=== PATIENT | male | born 1955 | race African-American/Black ===

== ENCOUNTER 2017-09-16 08:18 | Outpatient (CLI) | payer OTHER ==
--- NOTE | 2017-09-16 10:08 | RAD ---
THREE VIEWS LUMBAR SPINE: HISTORY: Low back pain with pain radiating down both legs into the feet. COMPARISON: None. FINDINGS: Standing neutral, standing flexion, and standing extension views of the lumbar spine demonstrate 5 jo mbar-type vertebral bodies. Vertebral body height is maintained. No fracture. Mild loss of disk sp walter height at L4-L5. No spondylolisthesis in the neutral position. No abnormal motion upon extensio n or flexion. IMPRESSION: Mild degenerative change at L4-L5. POS: [facility]
--- NOTE | 2017-09-16 11:53 | MRI ---
MRI LUMBAR SPINE WITHOUT CONTRAST: Multiplanar, multisequential imaging of the lumbar spine obtained. INDICATION: Lumbar spondylosis. Low back pain. Radiation to both legs and feet. FINDINGS: Lumbar vertebrae maintain normal height and alignment. Degenerative disk signal changes are noted at L4-5 and L5-S1, although disk space height is preserved. No disk bulge or disk protrusion seen at L1-2, L2-3, or L3-4 levels. Mild facet arthrosis at these l evels; however, no central canal or foraminal stenosis. At L4-5, mild broad-based disk bulge flattens the anterior thecal sac. Facet arthrosis and hypertrop hy are slightly more prominent. Mild central canal stenosis at this level. Mild bilateral foraminal narrowing due to diffuse disk bulge and facet hypertrophy. At L5-S1, there is a central disk protrusion which flattens the thecal sac. Mild facet arthrosis. M oderate central canal stenosis. Bilateral foraminal stenosis, more prominent on the right due to dif fuse disk bulge extending into the foramina and projecting laterally to the right. IMPRESSION: 1. At L5-S1, there is a central disk protrusion compressing the thecal sac. Broad-based disk bulge extends into foramina bilaterally with foraminal stenosis being more prominent on the right. 2. At L4-5, mild diffuse disk bulge with mild central canal stenosis as described. 3. Incidentally noted on review of soft tissues is a 2 cm high T2 lesion medial to the left kidney. This does not exhibit simple cystic signal on T1. Recommend further evaluation with CT abdomen with attention to kidneys. CODE T POS: [facility]
== END 2017-09-16 08:19 | disposition home or self-care (01) ==
LOC: TBSIIMAG 08:18
PROVIDERS: ATTEND Neurological Surgery
DX: M47.816 Spondylosis without myelopathy or radiculopathy, lumbar region (principal); M51.27 Other intervertebral disc displacement, lumbosacral region; M51.86 Other intervertebral disc disorders, lumbar region; M85.68 Other cyst of bone, other site
CPT/HCPCS: 72100; 72148

== ENCOUNTER 2017-12-02 09:49 | Outpatient (CLI) | payer OTHER ==
[~2017-12-02 09:49] MED LIST: ISOVUE-370 76%-LOCM 1 ML ONE
== END 2017-12-02 09:50 | disposition home or self-care (01) ==
LOC: BICCT 09:49
PROVIDERS: ATTEND Urology
DX: N28.89 Other specified disorders of kidney and ureter (principal); N28.1 Cyst of kidney, acquired
CPT/HCPCS: 74170